=== PATIENT | female | born 1990 | race Caucasian/White ===

== ENCOUNTER 2019-03-01 11:00 | Emergency (ER) | payer BC ==
--- NOTE | 2019-03-01 11:12 | ER Document Report ---
ED Medical Screen (RME) - General Chief Complaint: Allergic Reaction Stated Complaint: ALLERGIC REACTION Time Seen by Provider: 03/01/19 11:04 - HPI Notes: 03/01/19 11:09 Patient is a 28-year-old female with no significant past medical history aside from being allergic to "almost everything" who presents complaining of having a syncopal episode this morning in the bathtub where she lost consciousness for about 10 to 30 seconds. Patient states that she did not injure her head. Patient states that she also had generalized hives today which she did not take any medicines for and have improved since this morning. Patient does report having some nasal congestion and discharge as well as a dry cough over the past couple days with body aches. Patient states that she has woken up the past couple mornings with sharp abdominal pain and nausea, none currently. Patient states that she did have the essure procedure performed in the past (to prevent ). No fever. No chest pain or shortness of breath. I have treated and performed a rapid initial assessment of this patient. A comprehensive ED assessment and evaluation of the patient, analysis of test results and completion of medical decision making process will be conducted by additional ED providers. PHYSICAL EXAMINATION: GENERAL: Well-appearing, well-nourished and in no acute distress. A&Ox4. Answers questions appropriately. Lungs: CTAB, dry cough audible Neuro: Cranial nerves grossly intact. Throat: no angioedema or airway compromise. - Related Data Allergies/Adverse Reactions: No Known Allergies Allergy (Unverified 03/01/19 11:04) Physical Exam - Vital signs Vitals: Temp Pulse Resp BP Pulse Ox 97.8 F 85 20 127/84 H 97 03/01/19 11:03 03/01/19 11:03 03/01/19 11:03 03/01/19 11:03 03/01/19 11:03 Course - Vital Signs Vital signs: Temp Pulse Resp BP Pulse Ox 97.8 F 85 20 127/84 H 97 03/01/19 11:03 03/01/19 11:03 03/01/19 11:03 03/01/19 11:03 03/01/19 11:03
[2019-03-01] MEDS ORDERED: METHYLPREDNISOLONE INJ 125 MG/2 ML SDV IV ONE (11:13)
[2019-03-01] MEDS ORDERED: FAMOTIDINE INJ/PF 20 MG/2 ML SDV IV ONE (11:13)
[2019-03-01 11:49] LABS: ABSOLUTE LYMPHOCYTES (AUTO) 1.2 10^3/uL (0.5-4.7); ABSOLUTE MONOCYTES (AUTO) 0.3 10^3/uL (0.1-1.4); ABSOLUTE NEUT (AUTO) 8.4 10^3/uL (1.7-8.2); BASOPHILS % (AUTO) 0.1 % (0-2); EOSINOPHILS % (AUTO) 0.1 % (0-6); HEMATOCRIT 41.3 % (36.0-47.0); HEMOGLOBIN 14.4 g/dL (12.0-15.5); LYMPHOCYTES % (AUTO) 12.5 % (13-45); MEAN CORPUSCULAR HEMOGLOBIN 27.5 pg (27.0-33.4); MEAN CORPUSCULAR HGB CONC 34.9 g/dL (32.0-36.0); MEAN CORPUSCULAR VOLUME 79 fl (80-97); MONOCYTES % (AUTO) 2.7 % (3-13); PLATELET COUNT 271 10^3/uL (150-450); RED BLOOD COUNT 5.24 10^6/uL (3.72-5.28); RED CELL DISTRIBUTION WIDTH 13.6 % (11.5-14.0); SEGMENTED NEUTROPHILS % (AUTO) 84.6 % (42-78); TOTAL CELLS COUNTED % (AUTO) 100 %; WHITE BLOOD COUNT 9.9 10^3/uL (4.0-10.5)
[2019-03-01 12:07] LABS: ALBUMIN 4.3 g/dL (3.5-5.0); ALKALINE PHOSPHATASE 57 U/L (38-126); ANION GAP 11 (5-19); ASPARTATE AMINO TRANSFERASE 46 U/L (14-36); BILIRUBIN,DIRECT 0.2 mg/dL (0.0-0.4); BILIRUBIN,TOTAL 0.6 mg/dL (0.2-1.3); BLOOD UREA NITROGEN 13 mg/dL (7-20); CALCIUM 9.1 mg/dL (8.4-10.2); CARBON DIOXIDE 24 mmol/L (22-30); CHLORIDE 104 mmol/L (98-107); GLUCOSE 94 mg/dL (75-110); POTASSIUM 4.2 mmol/L (3.6-5.0); TOTAL PROTEIN 7.1 g/dL (6.3-8.2)
--- NOTE | 2019-03-01 12:13 | RADIOLOGY REPORT (SQ) ---
EXAM DESCRIPTION: CHEST 2 VIEWS COMPLETED DATE/TIME: 03/01/2019 12:03 pm REASON FOR STUDY: cough COMPARISON: None. EXAM PARAMETERS: NUMBER OF VIEWS: two views TECHNIQUE: Digital Frontal and Lateral radiographic views of the chest acquired. RADIATION DOSE: NA LIMITATIONS: none FINDINGS: LUNGS AND PLEURA: Early or developing lingular infiltrate marked with a pauma. Lungs otherwise well inflated and clear. No pleural effusion. No pneumothorax. MEDIASTINUM AND HILAR STRUCTURES: No masses or contour abnormalities. HEART AND VASCULAR STRUCTURES: Heart normal size. No evidence for failure. BONES: No acute findings. HARDWARE: None in the chest. OTHER: No other significant finding. IMPRESSION: Early or developing infiltrate in the lingula TECHNICAL DOCUMENTATION: JOB ID: [id number] [employer]- All Rights Reserved Reading location - IP/workstation name: [email or web address]
[2019-03-01 12:14] LABS: A TYPE INFLUENZA AG NEGATIVE (NEGATIVE); B INFLUENZA AG NEGATIVE (NEGATIVE)
[2019-03-01 12:23] LABS: APPEARANCE,URINE SLIGHTLY-CLOUDY; BILIRUBIN,URINE NEGATIVE (NEGATIVE); COLOR,URINE YELLOW; GLUCOSE, URINE NEGATIVE (NEGATIVE); KETONES,URINE NEGATIVE (NEGATIVE); PROTEIN,URINE 30 mg/dL (NEGATIVE); URINE SPECIFIC GRAVITY 1.018; UROBILINOGEN,URINE NEGATIVE mg/dL (<2.0)
[2019-03-01] MEDS ORDERED: DIPHENHYDRAMINE HCL 50 MG/ML VIAL IV ONE (12:37)
[2019-03-01] MEDS ORDERED: AZITHROMYCIN 250 MG TABLET PO ONE (12:46)
[2019-03-01 13:55] VITALS: BP 112/68
--- NOTE | 2019-03-01 19:27 | EKG REPORT ---
SEVERITY:- NORMAL ECG - SINUS RHYTHM : Confirmed by: Marjorie Tomas MD 01-Mar-2019 19:26:28
--- NOTE | 2019-03-01 19:38 | ER Document Report ---
Entered by GUERA PRADO SCRIBE 03/01/19 1209 Acting as scribe for:MARCELLA STAPLETON DO ED General - General Chief Complaint: Syncope Stated Complaint: ALLERGIC REACTION Time Seen by Provider: 03/01/19 11:04 Mode of Arrival: Ambulatory Information source: Patient Notes: This 28-year-old female patient presents to the emergency department today with complaints of a syncopal event that occurred just prior to arrival. Patient states she was sitting on the edge of the bath with her feet in the water, she felt weak, and then "woke up on the floor". Patient mentions that she might of had allergic reaction as she has had hives to her hands and feet today. Patient states she recently moved to the area and had allergy testing done and was told she was "allergic to basically everything here". Patient has had a cough and her family has recently had the flu. Patient has no shortness of breath or difficulty swallowing. - Related Data Allergies/Adverse Reactions: No Known Allergies Allergy (Unverified 03/01/19 11:04) Past Medical History - General Information source: Patient - Social History Smoking Status: Never Smoker Cigarette use (# per day): No Chew tobacco use (# tins/day): No Frequency of alcohol use: None Drug Abuse: None Lives with: Family Family History: Reviewed & Not Pertinent Patient has suicidal ideation: No Patient has homicidal ideation: No Review of Systems - Review of Systems Constitutional: No symptoms reported EENT: No symptoms reported Cardiovascular: See HPI, Syncope Respiratory: See HPI, Cough. denies: Short of breath Gastrointestinal: See HPI, Nausea Genitourinary: No symptoms reported Female Genitourinary: No symptoms reported Musculoskeletal: No symptoms reported Skin: No symptoms reported Hematologic/Lymphatic: No symptoms reported Neurological/Psychological: No symptoms reported -: Yes All other systems reviewed and negative Physical Exam - Vital signs Vitals: Temp Pulse Resp BP Pulse Ox 97.8 F 85 20 127/84 H 97 03/01/19 11:03 03/01/19 11:03 03/01/19 11:03 03/01/19 11:03 03/01/19 11:03 Interpretation: Normal - General General appearance: Appears well, Alert - HEENT Head: Normocephalic, Atraumatic Eyes: Normal Pupils: PERRL - Respiratory Respiratory status: No respiratory distress Chest status: Nontender Breath sounds: Normal Chest palpation: Normal - Cardiovascular Rhythm: Regular Heart sounds: Normal auscultation Murmur: No - Abdominal Inspection: Normal Distension: No distension Bowel sounds: Normal Tenderness: Nontender Organomegaly: No organomegaly - Back Back: Normal, Nontender - Extremities General upper extremity: Nontender, Normal color, Normal ROM, Normal temperature General lower extremity: Nontender, Normal color, Normal ROM, Normal temperature, Normal weight bearing. No: Ashwin's sign - Neurological Neuro grossly intact: Yes Cognition: Normal Orientation: AAOx4 Alexandr Coma Scale Eye Opening: Spontaneous Alexandr Coma Scale Verbal: Oriented Alexandr Coma Scale Motor: Obeys Commands Alexandr Coma Scale Total: 15 Speech: Normal Motor strength normal: LUE, RUE, LLE, RLE Sensory: Normal - Psychological Associated symptoms: Normal affect, Normal mood - Skin Skin Temperature: Warm Skin Moisture: Dry Skin Color: Normal Character of irregularity: Urticarial - Hands and feet bilaterally Course - Re-evaluation Re-evalutation: 03/01/19 Patient is a 28-year-old female who comes in complaining of feeling and itching sensation and nausea and then passed out into her bathtub. Patient with urticaria on exam and concerned that syncope was due to drop in blood pressure associated with an anaphylactic reaction. Patient is currently feeling better and has already been given Solu-Medrol and famotidine. Initially did not want Benadryl because she wanted to try to go to work but has decided that that is probably not a good idea for today. Patient has had a persistent cough so chest x-ray was performed which is concerning for developing pneumonia. She will be initiated on antibiotics here. No respiratory distress. Oxygen saturation above 96% even with ambulation. Patient is requesting discharge home. Appears well. No further symptoms at this time. Return if any worsening or concerning symptoms. Understands and agrees with plan. Will be discharged with prescription for Medrol Dosepak, azithromycin, and EpiPen. Stable for discharge. Grateful for care. - Vital Signs Vital signs: Temp Pulse Resp BP Pulse Ox 98.6 F 81 16 112/68 99 03/01/19 13:54 03/01/19 13:54 03/01/19 13:54 03/01/19 13:54 03/01/19 13:54 - Laboratory Result Diagrams: 03/01/19 11:15 03/01/19 11:15 Laboratory results interpreted by me: 03/01/19 03/01/19 03/01/19 11:15 11:15 11:15 MCV 79 L Lymph % (Auto) 12.5 L [place] % (Auto) 2.7 L Absolute Neuts (auto) 8.4 H Seg Neutrophils % 84.6 H AST 46 H Urine Protein 30 H Leukocyte Esterase Rfl SMALL H - Diagnostic Test Radiology reviewed: Reports reviewed Discharge - Discharge Clinical Impression: Pneumonia Qualifiers: Pneumonia type: due to unspecified organism Laterality: unspecified laterality Lung location: unspecified part of lung Qualified Code(s): J18.9 - Pneumonia, unspecified organism Allergic reaction Qualifiers: Encounter type: initial encounter Qualified Code(s): T78.40XA - Allergy, unspec ified, initial encounter Condition: Stable Disposition: HOME, SELF-CARE Instructions: Acute Allergic Reaction ([facility]), Pneumonia ([facility]) Prescriptions: Epinephrine [Epipen 2-Enrique] 0.3 mg IM ONCE #1 ml Methylprednisolone [Medrol Dosepack (4 mg/Tab) 21 Tab/Dosepak] 4 mg PO ASDIR PRN #21 tab.ds.pk PRN Reason: Azithromycin [Zithromax 250 mg Tablet] 250 mg PO ASDIR PRN #6 tablet PRN Reason: Forms: Return to Work I personally performed the services described in the documentation, reviewed and edited the documentation which was dictated to the scribe in my presence, and it accurately records my words and actions.
== END 2019-03-01 13:54 | disposition home or self-care (01) ==
LOC: ER 11:00
DX: J18.9 Pneumonia, unspecified organism (principal); T78.40XA Allergy, unspecified, initial encounter; R55 Syncope and collapse; R11.0 Nausea; X58.XXXA Exposure to other specified factors, initial encounter
CPT/HCPCS: 93005; 99284; 96374; 96375; 36415; 82962; 83690; 85025; 81025; 80053; 81001; 87804; 71046; 93010; J1200; J2930; S0028

== ENCOUNTER 2019-07-06 16:51 | Emergency (ER) | payer BC ==
[2019-07-06] MEDS ORDERED: PREDNISONE 20 MG TABLET PO ONE (17:16)
--- NOTE | 2019-07-06 17:26 | ER Document Report ---
ED Respiratory Problem - General Chief Complaint: Cough Stated Complaint: COUGH Time Seen by Provider: 07/06/19 17:02 Notes: CHIEF COMPLAINT: Cough for 3 weeks HPI: 28-year-old female who does not smoke presenting for cough for 3 weeks. Patient feels somewhat short of breath with coughing episodes. States when she talks or takes a deep breath and she starts coughing. Saw her PCP 4 days ago had a COVID test that resulted negative today. Patient has been on doxycycline for 4 days, no fevers but still with cough with green sputum. States she started having some epigastric abdominal pain after starting the doxycycline. Denies other complaints at this time ROS: See HPI - all other systems were reviewed and are otherwise negative Constitutional: no fever Eyes: no drainage, no blurred vision ENT: no runny nose, no sore throat Cardiovascular: no chest pain Resp: + SOB, + cough GI: no vomiting, no diarrhea, abdominal pain : no dysuria Integumentary: no rash Allergy: no hives Musculoskeletal: no extremity pain or swelling Neurological: no numbness/tingling, no weakness MEDICATIONS: I agree with the patient medications as charted by the RN. ALLERGIES: I agree with the allergies as charted by the RN. PAST MEDICAL HISTORY/PAST SURGICAL HISTORY: Reviewed and agree as charted by RN. SOCIAL HISTORY: Reviewed and agree as charted by RN. FAMILY HISTORY: No significant familial comorbid conditions directly related to patient complaint EXAM: Reviewed vital signs as charted by RN. CONSTITUTIONAL: Alert and oriented and responds appropriately to questions. Well-appearing; well-nourished HEAD: Normocephalic; atraumatic EYES: PERRL; Conjunctivae clear, sclerae non-icteric ENT: normal nose; no rhinorrhea; moist mucous membranes; pharynx without lesions noted, no uvula edema or deviation, no tonsillar hypertrophy, phonation normal NECK: Supple without meningismus; non-tender; no cervical lymphadenopathy, no masses CARD: RRR; no murmurs, no clicks, no rubs, no gallops; symmetric distal pulses RESP: Normal chest excursion without splinting or tachypnea; breath sounds clear and equal bilaterally; no wheezes, no rhonchi, no rales, pulse oximetry 95% on room air not hypoxic. Spastic cough is noted with deep breathing or speaking ABD/GI: Normal bowel sounds; non-distended; soft, non-tender, no rebound, no guarding; no palpable organomegaly or masses. BACK: The back appears normal and is non-tender to palpation, there is no CVA tenderness EXT: Normal ROM in all joints; non-tender to palpation; no cyanosis, no effusions, no edema SKIN: Normal color for age and race; warm; dry; good turgor; no acute lesions noted NEURO: Moves all extremities equally; Motor and sensory function intact PSYCH: The patient's mood and manner are appropriate. Grooming and personal hygiene are appropriate. MDM: 28-year-old female with likely bronchospasm from an upper respiratory infection. She is already on doxycycline. Patient has an albuterol inhaler was never given instruction on how to use it. Does not have a spacer. We will provide her with a spacer and instruction for use. Will obtain chest x-ray to evaluate for infiltrate. If chest x-ray is clear will place patient on steroids, continue albuterol use she was already previously on antibiotics which she may finish - Related Data Allergies/Adverse Reactions: pollen extracts Allergy (Verified 07/06/19 17:22) Past Medical History - Social History Smoking Status: Unknown if Ever Smoked Family History: Reviewed & Not Pertinent Physical Exam - Vital signs Vitals: Temp 99 F 07/06/19 16:51 Course - Re-evaluation Re-evalutation: 07/06/19 17:43 Chest x-ray on my review does not show evidence of infection or infiltrate. Will discharge on steroids, continue albuterol, continue doxycycline - Vital Signs Vital signs: Temp Pulse Resp BP Pulse Ox 99.0 F 92 17 113/72 95 07/06/19 17:01 07/06/19 17:01 07/06/19 17:01 07/06/19 17:01 07/06/19 17:01 Discharge - Discharge Clinical Impression: Acute bronchitis with bronchospasm Condition: Stable Disposition: HOME, SELF-CARE Instructions: Bronchitis With Bronchospasm (Wheezing) ([facility]) Additional Instructions: 1. take the medications as prescribed 2. if you were prescribed an Albuterol inhaler, use it as instructed, 2-4 puffs every 4 hours as needed for cough/wheezing 3. call your primary care provider as soon as possible to schedule recheck appt. in the office. 4. return to the ED for any worsening condition, shortness of breath or continued fever that does not resolve with Motrin/Tylenol Prescriptions: Benzonatate [Tessalon Perles 100 mg Capsule] 100 mg PO Q8HP PRN #40 capsule PRN Reason: Prednisone [Deltasone 20 mg Tablet] 2 tab PO DAILY 5 Days #10 tablet Referrals: PALMER RUCKER MD [ACTIVE STAFF] - Follow up as needed
--- NOTE | 2019-07-06 18:02 | RADIOLOGY REPORT (SQ) ---
EXAM DESCRIPTION: CHEST SINGLE VIEW IMAGES COMPLETED DATE/TIME: 07/06/2019 5:46 pm REASON FOR STUDY: cough COMPARISON: 03/01/2019. EXAM PARAMETERS: NUMBER OF VIEWS: One view. TECHNIQUE: Single frontal radiographic view of the chest acquired. RADIATION DOSE: NA LIMITATIONS: None. FINDINGS: LUNGS AND PLEURA: No opacities, masses or pneumothorax. No pleural effusion. MEDIASTINUM AND HILAR STRUCTURES: No masses. Contour normal. HEART AND VASCULAR STRUCTURES: Heart normal in size. Normal vasculature. BONES: No acute findings. HARDWARE: None in the chest. OTHER: No other significant finding. IMPRESSION: NO ACUTE RADIOGRAPHIC FINDING IN THE CHEST. TECHNICAL DOCUMENTATION: JOB ID: [id number] 2010 [employer]- All Rights Reserved Reading location - IP/workstation name: [email or web address]
[2019-07-06 18:19] VITALS: BP 114/80
== END 2019-07-06 18:26 | disposition home or self-care (01) ==
LOC: ER 16:51
DX: J20.9 Acute bronchitis, unspecified (principal)
CPT/HCPCS: 99283; 71045; J7512

== ENCOUNTER 2019-08-04 20:10 | Emergency (ER) | payer BC ==
[2019-08-04] MEDS ORDERED: ONDANSETRON 4 MG TAB.RAPDIS PO ONE (20:33)
--- NOTE | 2019-08-04 20:33 | ER Document Report ---
ED Medical Screen (RME) - General Chief Complaint: Flank Pain Stated Complaint: FLANK PAIN, ABDOMINAL PAIN, PELVIC PAIN Time Seen by Provider: 08/04/19 20:28 Mode of Arrival: Ambulatory Information source: Patient Notes: HPI; 28-year-old female medical history significant for kidney stones presents to the emergency room complaining of dysuria that started yesterday. Now with right flank pain and nausea. States tried taking Azo without relief. PE: Alert and oriented x3. Lungs clear to auscultation without rales, rhonchi, wheezes. Heart: Regular rate and rhythm without murmurs, rubs, gallops positive for right CVA tenderness. I have greeted and performed a rapid initial assessment of this patient. A comprehensive ED assessment and evaluation of the patient, analysis of test res ults and completion of the medical decision making process will be conducted by additional ED providers. I have specifically instructed the patient or family members with the patient to immediately return to any nursing staff should anything change in the patient's condition or with their chief complaint. TRAVEL OUTSIDE OF THE [place] IN LAST 30 DAYS: No - Related Data Allergies/Adverse Reactions: pollen extracts Allergy (Verified 08/04/19 20:28) Past Medical History Pulmonary Medical History: Reports: Hx Pneumonia Renal/ Medical History: Reports: Hx Kidney Stones Psychiatric Medical History: Reports: Hx Attention Deficit Hyperactivity Disorder Past Surgical History: Reports: Hx Section, Hx Gynecologic Surgery, Hx Kidney (Renal Surgery) Physical Exam - Vital signs Vitals: Temp Pulse Resp BP Pulse Ox 98.0 F 83 18 133/91 H 99 08/04/19 20:21 08/04/19 20:21 08/04/19 20:21 08/04/19 20:21 08/04/19 20:21 Course - Vital Signs Vital signs: Temp Pulse Resp BP Pulse Ox 98.0 F 83 18 133/91 H 99 08/04/19 20:21 08/04/19 20:21 08/04/19 20:21 08/04/19 20:21 08/04/19 20:21
[2019-08-04 21:28] LABS: ABSOLUTE BASOPHILS # (AUTO) 0.1 10^3/uL (0.0-0.2); ABSOLUTE EOSINOPHILS # (AUTO) 0.3 10^3/uL (0.0-0.6); ABSOLUTE LYMPHOCYTES (AUTO) 2.8 10^3/uL (0.5-4.7); ABSOLUTE MONOCYTES (AUTO) 0.7 10^3/uL (0.1-1.4); ABSOLUTE NEUT (AUTO) 8.8 10^3/uL (1.7-8.2); BASOPHILS % (AUTO) 0.5 % (0-2); EOSINOPHILS % (AUTO) 2.1 % (0-6); HEMATOCRIT 42.7 % (36.0-47.0); HEMOGLOBIN 14.4 g/dL (12.0-15.5); LYMPHOCYTES % (AUTO) 21.9 % (13-45); MEAN CORPUSCULAR HGB CONC 33.6 g/dL (32.0-36.0); MEAN CORPUSCULAR VOLUME 80 fl (80-97); MONOCYTES % (AUTO) 5.7 % (3-13); PLATELET COUNT 303 10^3/uL (150-450); RED BLOOD COUNT 5.32 10^6/uL (3.72-5.28); RED CELL DISTRIBUTION WIDTH 13.3 % (11.5-14.0); SEGMENTED NEUTROPHILS % (AUTO) 69.8 % (42-78); TOTAL CELLS COUNTED % (AUTO) 100 %; WHITE BLOOD COUNT 12.5 10^3/uL (4.0-10.5)
[2019-08-04 21:46] LABS: ALBUMIN 4.7 g/dL (3.5-5.0); ALKALINE PHOSPHATASE 62 U/L (38-126); ANION GAP 6 (5-19); ASPARTATE AMINO TRANSFERASE 31 U/L (14-36); BILIRUBIN,TOTAL 0.5 mg/dL (0.2-1.3); BLOOD UREA NITROGEN 15 mg/dL (7-20); CALCIUM 9.4 mg/dL (8.4-10.2); CARBON DIOXIDE 27 mmol/L (22-30); CHLORIDE 103 mmol/L (98-107); GLUCOSE 92 mg/dL (75-110); POTASSIUM 4.4 mmol/L (3.6-5.0); TOTAL PROTEIN 7.3 g/dL (6.3-8.2)
--- NOTE | 2019-08-04 22:14 | RADIOLOGY REPORT (SQ) ---
EXAM DESCRIPTION: CT ABDOMEN PELVIS WITHOUT IV CONTRAST COMPLETED DATE/TME: 08/04/2019 20:31 CLINICAL HISTORY: 28 years, Female, flank pain COMPARISON: None. TECHNIQUE: 315 Images stored on PACS. All CT scanners at this facility use dose modulation, iterative reconstruction, and/or weight based dosing when appropriate to reduce radiation dose to as low as reasonably achievable (ALARA). [facility]: Dose Right [facility]: CareDose [facility]: Dose Right [facility]: Teradose 4D [facility]: [employer] LIMITATIONS: None. FINDINGS: Visualized lung bases are unremarkable. Osseous structures are grossly intact. Limited evaluation of the liver, spleen, adrenal glands, pancreas are unremarkable. Gallbladder is present. Multiple punctate nonobstructing renal calculi bilaterally. Superimposed mild right hydroureteronephrosis without a discrete obstructing calculus. Findings could reflect a recently passed stone. Superimposed infectious or inflammatory process not excluded. Normal appendix. No gross evidence for bowel obstruction. Abundant stool in the colon. No free air or free fluid. Urinary bladder is incompletely distended. Bilateral fallopian tube devices are present. IMPRESSION: Multiple punctate nonobstructing renal calculi bilaterally. Mild right hydronephrosis without a discrete obstructing calculus. Findings could reflect a recently passed stone. Superimposed infectious or inflammatory process not excluded. Abundant stool in the colon. Normal appendix. TECHNICAL DOCUMENTATION: Quality ID # [id number]: Final reports with documentation of one or more dose reduction techniques (e.g., Automated exposure control, adjustment of the mA and/or kV according to patient size, use of iterative reconstruction technique) copyright 2011 [employer]- All Rights Reserved
[2019-08-04 22:50] LABS: APPEARANCE,URINE CLEAR; BILIRUBIN,URINE NEGATIVE (NEGATIVE); COLOR,URINE STRAW; GLUCOSE, URINE NEGATIVE (NEGATIVE); KETONES,URINE NEGATIVE (NEGATIVE); LEUKOCYTE ESTERASE,URINE MODERATE (NEGATIVE); NITRITE,URINE NEGATIVE (NEGATIVE); PROTEIN,URINE 30 mg/dL (NEGATIVE); URINE SPECIFIC GRAVITY 1.006; UROBILINOGEN,URINE NEGATIVE mg/dL (<2.0)
[2019-08-05] MEDS ORDERED: HYDROCODONE/ACETAMINOPHEN 5-325 MG (6 TAB/ER DISP) PO PRN (01:05)
[2019-08-05] MEDS ORDERED: CEPHALEXIN 500 MG CAPSULE PO ONE (01:05)
--- NOTE | 2019-08-05 01:07 | ER Document Report ---
ED GI/ - General Chief Complaint: Urinary Problem Stated Complaint: FLANK PAIN, ABDOMINAL PAIN, PELVIC PAIN Time Seen by Provider: 08/04/19 20:28 Mode of Arrival: Ambulatory Notes: Patient is a 28-year-old female that comes emergency department for chief complaint of right flank pain and also a painful dysuria that started within the past day. She denies nausea, vomiting, fever, chills, vaginal bleeding or discharge. She denies any other complaints. She does have a history of kidney stones and has passed multiple ones in the past. She is also had a kidney stone surgically removed once. She denies . TRAVEL OUTSIDE OF THE [place] IN LAST 30 DAYS: No - Related Data Allergies/Adverse Reactions: pollen extracts Allergy (Verified 08/04/19 20:28) Past Medical History - General Information source: Patient - Social History Smoking Status: Never Smoker Frequency of alcohol use: Social Drug Abuse: None Lives with: Family Family History: Reviewed & Not Pertinent Patient has homicidal ideation: No Pulmonary Medical History: Reports: Hx Pneumonia Renal/ Medical History: Reports: Hx Kidney Stones Psychiatric Medical History: Reports: Hx Attention Deficit Hyperactivity Disorder Past Surgical History: Reports: Hx Section, Hx Gynecologic Surgery, Hx Kidney (Renal Surgery) Review of Systems - Review of Systems Constitutional: No symptoms reported EENT: No symptoms reported Cardiovascular: No symptoms reported Respiratory: No symptoms reported Gastrointestinal: See HPI Genitourinary: See HPI Female Genitourinary: No symptoms reported Musculoskeletal: No symptoms reported Skin: No symptoms reported Hematologic/Lymphatic: No symptoms reported Neurological/Psychological: No symptoms reported Physical Exam - Vital signs Vitals: Temp Pulse Resp BP Pulse Ox 98.0 F 83 18 133/91 H 99 08/04/19 20:21 08/04/19 20:21 08/04/19 20:21 08/04/19 20:21 08/04/19 20:21 - Notes Notes: GENERAL: Alert, interacts well. No acute distress. HEAD: Normocephalic, atraumatic. EYES: Pupils equal, round, and reactive to light. Extraocular movements intact. ENT: Oral mucosa moist, tongue midline. Oropharynx unremarkable. Airway patent. NECK: Full range of motion. Supple. Trachea midline. No lymphadenopathy. LUNGS: Clear to auscultation bilaterally, no wheezes, rales, or rhonchi. No respiratory distress. Non-tender chest wall. HEART: Regular rate and rhythm. No murmur ABDOMEN: Soft, non-tender. Non-distended. Bowel sounds present in all 4 quadrants. GENITOURINARY: Deferred EXTREMITIES: Moves all 4 extremities spontaneously. No edema, normal radial and dorsalis pedis pulses bilaterally. No cyanosis. BACK: No CVA tenderness. No cervical, thoracic, lumbar midline tenderness. No saddle anesthesia, normal distal neurovascular exam. Moves all extremities in full range of motion. NEUROLOGICAL: Alert and oriented x3. Normal speech. Cranial nerves II through XII grossly intact. Strength 5/5 in all extremities. PSYCH: Normal affect, normal mood. SKIN: First-degree sunburn noted over the face, chest, forearms. Unremarkable otherwise. Course - Re-evaluation Re-evalutation: On my evaluation patient is smiling, talkative, well-appearing. She states she actually feels a lot better than she did before. CT shows there developing pyelonephritis versus recently passed kidney stone with multiple nephrolithiasis noted but no ureterolithiasis. Patient does have a UTI on evaluation, mild leukocytosis, unremarkable chemistry. Unremarkable vital signs. No CVA tenderness noted. No fever specifically. I discussed findings with patient, provide her with a copy of the CT scan, started her on antibiotics, discussed urology follow-up like she has before and return precautions in detail. Patient states appreciation and agreement. - Vital Signs Vital signs: Temp Pulse Resp BP Pulse Ox 98.0 F 86 16 120/80 99 08/05/19 01:16 08/05/19 01:16 08/05/19 01:16 08/05/19 01:16 08/05/19 01:16 - Laboratory Result Diagrams: 08/04/19 21:15 08/04/19 21:15 Laboratory results interpreted by me: 08/04/19 08/04/19 08/04/19 20:33 21:15 21:15 WBC 12.5 H RBC 5.32 H Absolute Neuts (auto) 8.8 H Sodium 136.0 L Urine Protein 30 H Urine Blood LARGE H Ur Leukocyte Esterase MODERATE H Discharge - Discharge Clinical Impression: Right flank pain, Dysuria Condition: Stable Disposition: HOME, SELF-CARE Additional Instructions: You have small stones in each kidney but you are not currently passing a stone. You have a urinary tract infection. It is possible that you just passed a stone earlier today. Take nausea medication as needed, drink plenty fluids, take antibiotics to completion, take the provided pain medication if needed. Follow- up with primary care and urology. Return if you worsen including fever, vomiting, severe worsening pain, or any other concerning symptoms. Prescriptions: Cephalexin Monohydrate [Keflex 500 mg Capsule] 500 mg PO QID 10 Days #40 capsule Ondansetron [Zofran Odt 4 mg Tablet] 1 - 2 tab PO Q4H PRN #15 tab.rapdis PRN Reason: For Nausea/Vomiting
[2019-08-05 01:39] VITALS: BP 120/80
== END 2019-08-05 01:16 | disposition home or self-care (01) ==
LOC: ER 20:10
DX: R30.0 Dysuria (principal); R10.9 Unspecified abdominal pain; R39.198 Other difficulties with micturition; R10.2 Pelvic and perineal pain
CPT/HCPCS: 99284; 36415; 87086; 84703; 85025; 87088; 80053; 81001; 74176; S0119